=== PATIENT | male | born 1935 | race Two or more races ===

== ENCOUNTER 2024-03-16 13:31 | Inpatient (IN) | payer OTHER, MEDICAID ==
[~2024-03-16] VITALS: Ht 167.6 cm; Wt 65.3 kg
[2024-03-16] VITALS (25 sets, daily range): BP systolic 79–109; BP diastolic 41–88; TEMP 97.2–97.6; O2SAT 92–98
[2024-03-16] MEDS: IV NS 0.9% 1,000 ML BAG IV ONE (13:50)
[2024-03-16 14:11] LABS: INR 2.22 (0.91-1.10); PARTIAL THROMBOPLASTIN TIME 49.5 SEC (24.3-34.3); PROTHROMBIN TIME 22.3 SECS (9.2-11.1)
[2024-03-16 14:17] LABS: ALANINE AMINOTRANSFERASE 30 U/L (12-78); ALKALINE PHOSPHATASE 393 U/L (46-116); ASPARTATE AMINOTRANSFERASE 64 U/L (15-37); BILIRUBIN,TOTAL 1.4 mg/dL (0.2-1.0); CALCIUM, SERUM 7.6 mg/dL (8.5-10.1); CARBON DIOXIDE 21 mmol/L (21-32); CHLORIDE 105 mmol/L (98-107); CREATININE 1.8 mg/dL (0.6-1.3); GLUCOSE 65 mg/dL (74-106); POTASSIUM 3.9 mmol/L (3.5-5.1); SODIUM SERUM 138 mmol/L (136-145); TOTAL PROTEIN, SERUM 5.9 g/dL (6.4-8.2); UREA NITROGEN, BLOOD 45 mg/dL (7-18)
[2024-03-16 14:25] LABS: APPEARANCE,URINE CLEAR (CLEAR); BILIRUBIN,URINE 1+ (NEGATIVE); BLOOD, URINE NEGATIVE Ery/uL (NEGATIVE); COLOR,URINE YELLOW (YELLOW); KETONES,URINE NEGATIVE (NEGATIVE); LEUKOCYTE ESTERASE ,URINE NEGATIVE (NEGATIVE); NITRITE, URINE NEGATIVE (NEGATIVE); PH,URINE 5.5 (5.0-8.0); PROTEIN,URINE TRACE mg/dl (NEGATIVE); UGLUCOSE NEGATIVE (NEGATIVE)
[2024-03-16 14:29] LABS: ALBUMIN 1.1 g/dL (3.4-5.0)
[2024-03-16] MEDS ORDERED: NOREPINEPHRINE 8MG/250ML RTU 250 ML IV ONE (14:30)
[2024-03-16 14:43] LABS: BACTERIA,URINE Few /HPF (None Seen); SQUAMOUS EPITHELIAL CELL,UR Few /HPF (None Seen)
[2024-03-16 14:44] LABS: MUCUS,URINE Few /LPF (None Seen); URINE AMORPHOUS URATE Moderate /HPF (None Seen)
[2024-03-16 14:45] LABS: ADD URINE CULTURE NO; RBC,URINE 0-2 /HPF (0-2)
[2024-03-16] MEDS: NOREPINEPHRINE 8 MG in IV D5W 242 ML IV PRN ×2 (14:47→20:06)
[2024-03-16] MEDS: CEFEPIME 1 GM in IV D5W 50 ML IV ONE (15:30)
[2024-03-16 15:43] LABS: BASOPHILS # (AUTO) 0.1 K/uL (0.0-0.2); EOSINOPHILS # (AUTO) 0.2 K/uL (0.0-0.7); EOSINOPHILS % (AUTO) 2.4 % (0.0-6.0); LYMPHOCYTES % (AUTO) 28.6 % (20.0-44.0); MEAN CORPUSCULAR HEMOGLOBIN 30 PG (26.0-33.0); MEAN CORPUSCULAR HGB CONC 35 g/dl (31.0-36.0); MEAN CORPUSCULAR VOLUME 86 fL (80-96); MONOCYTES % (AUTO) 28.9 % (2.0-12.0); NEUTROPHILS # (AUTO) 2.8 K/uL (1.8-8.9); NEUTROPHILS % (AUTO) 39.1 % (43.0-81.0); RED BLOOD CELL COUNT(AUTO) 2.11 MIL/uL (4.5-6.0); RED CELL DISTRIBUTION WIDTH 16.7 % (11.5-15.0); WHITE BLOOD COUNT (AUTO) 7.1 K/uL (4.3-11.0)
[2024-03-16 15:58] LABS: HEMATOCRIT 18 % (39-51); HEMOGLOBIN 6.3 g/dL (13.5-17.5); PLATELET COUNT (AUTO) 8 K/uL (150-450)
[2024-03-16] MEDS: VANCOMYCIN 1 GM in IV D5W 250 ML IV ONE (16:00)
[2024-03-16] MEDS ORDERED: ACYC400T19 PO (16:57)
[2024-03-16] MEDS ORDERED: LATA2.5D15 EACHEYE (16:57)
[2024-03-16] MEDS ORDERED: LEVO750T46 PO (16:57)
[2024-03-16] MEDS ORDERED: ACETAMINOPHEN 325 MG TABLET PO PRN (17:30)
[2024-03-16] MEDS ORDERED: ONDANSETRON HCL/PF 4 MG/2 ML VIAL IVP PRN ×2 (17:30→18:30)
[2024-03-16] MEDS ORDERED: IV NS 0.9% 1,000 ML IV SCH ×2 (17:30→19:00)
[2024-03-16] MEDS ORDERED: NOREPINEPHRINE 8 MG in IV D5W 242 ML IV PRN (17:30)
[2024-03-16] MEDS ORDERED: MAG HYDROX/AL HYDROX/SIMETH 30 ML UDC PO PRN ×2 (17:30→18:30)
[2024-03-16] MEDS ORDERED: MEROPENEM 1 G in IV NS 0.9% 100 ML IV SCH ×2 (17:30→18:30)
[2024-03-16] MEDS ORDERED: Z GUARD REMEDY 4 OZ OINT TP PRN ×2 (17:30→18:30)
[2024-03-16] MEDS ORDERED: MAGNESIUM HYDROXIDE 30 ML UDC PO PRN ×2 (17:30→18:30)
[2024-03-16 17:39] LABS: BAND % (MANUAL) 5 % (0.0-5.0); LYMPHOCYTES % (MANUAL) 28 % (16-48)
[2024-03-16 17:40] LABS: EOSINOPHILS % (MANUAL) 2 % (0-4); METAMYELOCYTES % 1 % (0-0); MONOCYTES % (MANUAL) 10 % (0-11.0); MYELOCYTES % 2 % (0-0)
[2024-03-16 17:41] LABS: HYPOCHROMASIA 1+; NEUTROPHILS % (MANUAL) 35 (42-76); PLATELET ESTIMATE DECREASED
[2024-03-16] MEDS: IV NS 0.9% 1,000 ML IV SCH (18:54)
[2024-03-16] MEDS: MEROPENEM 1 G in IV NS 0.9% 100 ML IV SCH (20:12)
[2024-03-16] MEDS: ALBUMIN 25% 25 GM in PREMIX 1 EA IV SCH (20:44)
[2024-03-16] MEDS: HYDROCORTISONE SOD SUCCINATE 100 MG/2 ML VIAL IV SCH (21:07)
[2024-03-16] MEDS: diphenhydrAMINE HCL 25 MG CAPSULE PO ONE (22:50)
[2024-03-16] MEDS: ACETAMINOPHEN 325 MG TABLET PO PRN (22:53)
[2024-03-17] VITALS (20 sets, daily range): BP systolic 48–112; BP diastolic 39–82; TEMP 97.2–97.8; O2SAT 85–97
[2024-03-17 03:11] LABS: ABG BASE EXCESS -22.8 mmol/L (-2.0-3.0); ABG OXYGEN SATURATION 92.1 % (94.0-98.0); ABG PCO2 41.1 mmHg (35.0-48.0); ABG PH 6.931 (7.350-7.450); ABG PO2 88.3 mmHg (83.0-108.0); ABG TOTAL HEMOGLOBIN 9.2 G/dL (13.5-17.5); COHb 0.3 % (0.5-1.5); MetHb 0.3 % (0.0-1.5); O2Hb 91.5 % (94.0-97.0); SITE, ABG RIGHT RADIAL
[2024-03-17] MEDS ORDERED: SODIUM BICARBONATE SYR 50 MEQ/50 ML DISP.SYRIN ONE (03:17)
[2024-03-17] MEDS: Sodium Bicarbonate 100 MEQ in IV NS 0.9% 1,000 ML IV PRN (03:22)
[2024-03-17] MEDS ORDERED: PHENYLEPHRINE 100 MG in IV NS 0.9% 240 ML IV PRN (03:30)
[2024-03-17] MEDS ORDERED: PHENYLEPHRINE 10 MG/ML VIAL ONE (03:35)
[2024-03-17] MEDS ORDERED: VANCOMYCIN 750 MG in IV D5W 250 ML IV SCH (16:00)
== END 2024-03-17 05:40 | DRG 871 ==
LOC: ER 13:36 → ICU 18:44
PROVIDERS: ADMIT Nurse Practitioner Acute Care; ATTEND Nurse Practitioner Acute Care
PROC: 30233N1 Transfusion of Nonautologous Red Blood Cells into Peripheral Vein, Percutaneous Approach (ICD-10-PCS; principal; 2024-03-16)
DX: A41.9 Sepsis, unspecified organism (principal); G93.41 Metabolic encephalopathy; J18.9 Pneumonia, unspecified organism; J96.01 Acute respiratory failure with hypoxia; R65.21 Severe sepsis with septic shock; I21.A1 Myocardial infarction type 2; C92.00 Acute myeloblastic leukemia, not having achieved remission; E87.20 Acidosis, unspecified; J90 Pleural effusion, not elsewhere classified; N17.9 Acute kidney failure, unspecified; D84.9 Immunodeficiency, unspecified; Z66 Do not resuscitate; E88.09 Other disorders of plasma-protein metabolism, not elsewhere classified; D69.6 Thrombocytopenia, unspecified; Z79.899 Other long term (current) drug therapy; Y95 Nosocomial condition; Z88.0 Allergy status to penicillin; Z88.3 Allergy status to other anti-infective agents
CPT/HCPCS: 36415; 36600; 71045-TC; 80048-TC; 80076-TC; 81001; 82533; 82803-TC; 83605-TC; 84484-TC; 85025-TC; 85730-TC; 86850-TC; 87040-TC; 87081-TC; 87086-TC; 94799-TC; A4216; A4223; G0378; J0692; J1720; J2185; J3370; J3490; J7030; J7050; J7060; P9016; P9047; Q0163